=== PATIENT | female | born 1955 | race Caucasian/White ===

== ENCOUNTER 2017-02-12 07:37 | Emergency (ER) | payer OTHER ==
[~2017-02-12] VITALS: Ht 165.1 cm; Wt 161.0 kg
[~2017-02-12 07:37] MED LIST: B COMPLEX #11 EACH PO; BYSTOLIC20 MG PO; GABAPENTIN100 MG PO; LASIX20 MG PO; LIPITOR20 MG PO; POTASSIUM CHLO20 ME2 PO; STOOL SOFTENER100 MG PO; TRAMADOL HCL50 MG PO; VITAMIN B-650 M1 PO; WOMEN'S DAILY1 EAC4 PO
[2017-02-12] MEDS ORDERED: PERCOCET 5/31 TABLET PO (13:24)
[2017-02-12 13:34] VITALS: BP 143/77
== END 2017-02-12 14:02 | disposition home or self-care (01) ==
LOC: EME → EDBD 07:37 → EME 07:37
PROC: 0RSJXZZ Reposition Right Shoulder Joint, External Approach (ICD-10-PCS; principal; 2017-02-12)
DX: S42.211A Unspecified displaced fracture of surgical neck of right humerus, initial encounter for closed fracture (principal); S42.251A Displaced fracture of greater tuberosity of right humerus, initial encounter for closed fracture; W10.9XXA Fall (on) (from) unspecified stairs and steps, initial encounter; I10 Essential (primary) hypertension; Z85.43 Personal history of malignant neoplasm of ovary; Z87.891 Personal history of nicotine dependence
CPT/HCPCS: 73030; 73060; 73200; 76376; 99281; 99285; J2270; J3010; J7030

== ENCOUNTER 2017-08-22 15:00 | Inpatient (IN) | payer BC ==
[~2017-08-22] VITALS: Ht 165.1 cm; Wt 147.5 kg
[~2017-08-22 15:00] MED LIST changes: +PERCOCET 5/31 TABLET PO
[2017-08-22 16:14] LABS: HEMATOCRIT 45.2 % (36.0-46.0); HEMOGLOBIN 15.5 G/DL (11.9-15.5); MCH 30.3 PG (29.0-34.0); MCHC 34.3 G/DL (30.0-36.0); MCV 88.5 FL (83-99); PLATELET COUNT 267 K/uL (156-360); RBC DIS.WIDTH-CV 15.2 % (11.8-14.6); RBC DIS.WIDTH-SD 46.5 % (39-53); RED BLOOD COUNT 5.11 M/uL (3.80-5.20); WHITE BLOOD COUNT 15.9 K/uL (4.1-10.2)
[2017-08-22 16:25] LABS: ALBUMIN 4.4 g/dL (3.2-4.8)
[2017-08-22 16:26] LABS: CHLORIDE 100 mEq/L (99-109); POTASSIUM 4.2 mEq/L (3.7-5.4); SODIUM 135 mEq/L (136-147)
[2017-08-22 16:28] LABS: GLUCOSE 178 mg/dL (70-99); TOTAL PROTEIN 8.6 g/dL (6.4-8.3)
[2017-08-22 16:31] LABS: ALKALINE PHOSPHATASE 104 IU/L (3-129)
[2017-08-22 16:32] LABS: CREATININE 0.8 mg/dL (0.6-1.3); GFR ESTIMATE (CALCULATED) > 59 mL/min/
[2017-08-22 16:33] LABS: AST (GOT) 25 IU/L (2-34); UREA NITROGEN (BUN) 13 mg/dL (9-23)
[2017-08-22 16:35] LABS: ALT (GPT) 17 IU/L (3-49)
[2017-08-22] MEDS ORDERED: COZAAR25 MG PO (21:16)
[2017-08-22] MEDS ORDERED: CRESTOR10 MG PO (21:17)
[2017-08-22] MEDS ORDERED: LO-DOSE ASPIRIN81 M2 PO (21:17)
[2017-08-22] MEDS ORDERED: Z PO (21:20)
[2017-08-23 01:40] VITALS: BP 128/76
[2017-08-23 02:08] VITALS: BP 115/76
[2017-08-23 05:53] LABS: CHLORIDE 101 MEQ/L (99-109); CREATININE 0.8 MG/DL (0.6-1.3); GFR ESTIMATE (CALCULATED) > 59 mL/min/; GLUCOSE 161 mg/dL (70-99); HEMATOCRIT 38.9 % (36.0-46.0); MCH 29.4 PG (29.0-34.0); MCHC 32.9 G/DL (30.0-36.0); MCV 89.2 FL (83-99); PLATELET COUNT 265 K/uL (156-360); RBC DIS.WIDTH-SD 46.5 % (39-53); RED BLOOD COUNT 4.36 M/uL (3.80-5.20); SODIUM 136 MEQ/L (136-147); UREA NITROGEN (BUN) 17 mg/dL (9-23); WHITE BLOOD COUNT 12.9 K/uL (4.1-10.2)
[2017-08-23 05:58] LABS: HEMOGLOBIN 12.8 G/DL (11.9-15.5)
[2017-08-23 07:29] VITALS: BP 112/56
[2017-08-23 11:31] VITALS: BP 114/67
[2017-08-23 15:53] VITALS: BP 116/70
[2017-08-23 19:08] VITALS: BP 132/61
[2017-08-24] VITALS (7 sets, daily range): BP systolic 117–132; BP diastolic 60–75
[2017-08-25 04:40] VITALS: BP 127/65
[2017-08-25 05:13] LABS: HEMATOCRIT 33.8 % (36.0-46.0); HEMOGLOBIN 10.9 G/DL (11.9-15.5); MCH 29.5 PG (29.0-34.0); MCHC 32.2 G/DL (30.0-36.0); MCV 91.6 FL (83-99); PLATELET COUNT 209 K/uL (156-360); RBC DIS.WIDTH-CV 15.2 % (11.8-14.6); RBC DIS.WIDTH-SD 49.4 % (39-53); RED BLOOD COUNT 3.69 M/uL (3.80-5.20); WHITE BLOOD COUNT 7.5 K/uL (4.1-10.2)
[2017-08-25 05:42] LABS: CHLORIDE 105 MEQ/L (99-109); CREATININE 0.7 MG/DL (0.6-1.3); GFR ESTIMATE (CALCULATED) > 59 mL/min/; GLUCOSE 130 mg/dL (70-99); POTASSIUM 3.9 MEQ/L (3.7-5.4); SODIUM 138 MEQ/L (136-147); UREA NITROGEN (BUN) 7 mg/dL (9-23)
[2017-08-25 07:23] VITALS: BP 129/64
[2017-08-25 12:40] VITALS: BP 134/75
[2017-08-25 15:32] VITALS: BP 129/68
[2017-08-25 20:00] VITALS: BP 127/76
[2017-08-25 23:55] VITALS: BP 131/69
[2017-08-26 04:00] VITALS: BP 161/69
== END 2017-08-26 10:09 | disposition home or self-care (01) | DRG 354 ==
LOC: EME 15:00 → SDC 22:13 → 2SOUTH 23:54 → 4EAST 23:54 → ENRESERV 23:57 → 4EAST 08-23 01:16
PROVIDERS: Internal Medicine; Physician Assistant Medical; Surgery
PROC: 0WQF0ZZ Repair Abdominal Wall, Open Approach (ICD-10-PCS; principal; 2017-08-23)
DX: K43.0 Incisional hernia with obstruction, without gangrene (principal); I10 Essential (primary) hypertension; E66.01 Morbid (severe) obesity due to excess calories; Z96.611 Presence of right artificial shoulder joint; E78.5 Hyperlipidemia, unspecified; R18.8 Other ascites; I89.0 Lymphedema, not elsewhere classified; G62.9 Polyneuropathy, unspecified; Z79.899 Other long term (current) drug therapy; Z85.43 Personal history of malignant neoplasm of ovary; Z79.82 Long term (current) use of aspirin; I25.2 Old myocardial infarction; Z87.891 Personal history of nicotine dependence; Z68.43 Body mass index [BMI] 50.0-59.9, adult
CPT/HCPCS: 71045; 74176; 74177; 76705; 80048; 80053; 81003; 82948; 83605; 85027; 87040; 88302; 93005; 97530 GO; 99281; 99285; J0131; J1100; J1170; J1650; J1885; J2405; J2710; J3010; J7030; S0028; S0074